=== PATIENT | male | born 1990 | race Two or more races ===

== ENCOUNTER 2021-01-01 19:26 | Emergency (ER) | payer BC ==
[~2021-01-01] VITALS: Ht 172.7 cm; Wt 100.0 kg
[2021-01-01] MEDS ORDERED: EPINEPHRINE 1 MG/ML, 1ML ONE (19:49)
[2021-01-01] MEDS ORDERED: SODIUM CHLORIDE 0.9% 1,000ML IVBOLUS ONE (20:00)
[2021-01-01] MEDS ORDERED: SODIUM CHLORIDE FLUSH 10ML SYR IVF ONE (20:00)
[2021-01-01] MEDS ORDERED: EPINEPHRINE 1 MG/ML, 1ML SQ ONE (20:00)
[2021-01-01] MEDS ORDERED: methylPREDNISolone SOD SUCC 125 MG/2 ML IVPush ONE (20:00)
--- NOTE | 2021-01-01 20:54 | NUR ---
REPORT FROM RAJAT BARAHONA.
--- NOTE | 2021-01-01 20:56 | NUR ---
REPORT TO JUN COYLE.
--- NOTE | 2021-01-01 21:19 | NUR ---
DR. THOMAS AT BEDSIDE TO REVIEW POC WITH PT AND MYSELF. CONTINUING TO MONITOR PT. VSS AT THIS TIME. PT REPORTS HE FEELS BETTER AND CAN NOW FEEL SENSATION IN FACE AND LIPS, PT SPEAKING IN COMPLETE SENTENCES WITH NO DIFFICULTY OR SOB.
[2021-01-01 22:05] VITALS: BP 114/57
== END 2021-01-01 22:07 | disposition home or self-care (01) ==
LOC: ED 21:05
DX: T78.2XXA Anaphylactic shock, unspecified, initial encounter (principal); T78.3XXA Angioneurotic edema, initial encounter
CPT/HCPCS: 96372; 96374; 99284; J0171; J2930